=== PATIENT | male | born 1985 | race Asian ===

== ENCOUNTER 2019-07-27 20:23 | Emergency (ER) | payer MEDICAID ==
[~2019-07-27] VITALS: Ht 175.3 cm; Wt 63.5 kg
[2019-07-27 20:33] VITALS: BP_SYST 132
--- NOTE | 2019-07-27 20:44 | NUR ---
Patient to ER bed 08 to gown for evaluation. Side rails up.
[2019-07-27] MEDS ORDERED: NACL 0.9% 1,000 ML IV ONE (20:50)
--- NOTE | 2019-07-27 20:51 | NUR ---
ER Dr. GLASS at bedside examining patient.
--- NOTE | 2019-07-27 20:52 | NUR ---
ATTEMPTED TO PLACE IV ANGIOCATH TO RAC. UNSUCCESSFUL. PATIENT REFUSING BLOOD DRAW AND WOULD LIKE TO SIGN OUT AMA. NOTIFIED
[2019-07-27] MEDS ORDERED: PANTOPRAZOLE SODIUM 40 MG/VIAL (PROTONIX) IVP ONE (21:00)
[2019-07-27] MEDS ORDERED: ONDANSETRON HCL 4 MG/2 ML VIAL IVP ONE (21:00)
--- NOTE | 2019-07-27 21:16 | NUR ---
Patient does not wish to proceed with medical care recommended by DR. GLASS. Patient given information related to possible complications, up to and including , which could occur as a result of leaving hospital at this time. Patient verbalizes understanding of risks involved leaving against medical advice. Patient has signed AMA form.
[2019-07-27 21:18] VITALS: BP_SYST 132
== END 2019-07-27 21:18 | disposition left against medical advice (07) ==
LOC: SED 20:23
DX: R11.2 Nausea with vomiting, unspecified (principal); F20.9 Schizophrenia, unspecified; F12.90 Cannabis use, unspecified, uncomplicated; F15.90 Other stimulant use, unspecified, uncomplicated
CPT/HCPCS: 99283; C9113; J2405